=== PATIENT | female | born 1995 | race Caucasian/White ===

== ENCOUNTER 2022-04-24 12:45 | Inpatient (IN) | payer MEDICAID ==
[~2022-04-24] VITALS: Ht 165.1 cm; Wt 80.1 kg
[2022-04-24] VITALS (22 sets, daily range): BP systolic 73–135; BP diastolic 46–88
[~2022-04-24 12:45] MED LIST: ACHD5005 PO; AMOX500C2 PO; CYCL10TA9 PO; DEPO-PROVERA SQ; Depo Provera; LNS30CCR PO
--- NOTE | 2022-04-24 13:04 | History & Physical ---
History and Physical Date Seen by Provider: Apr 24, 2022 Time Seen by Provider: 13:01 This patient is a 27-year-old 2 para 1 female who is currently at 35-4/7 weeks gestation. She was seen in my clinic for return OB today was found mariela every 2 minutes and was dilated 5 cm within an hour she had changes 6 cm. She was sent to labor and delivery for labor management. Patient denies rupture membranes or bleeding. Her GBS culture was negative. Patient has had no problems with this . Allergies are to aspirin Medications are vitamins Medical social and surgical histories are per the antepartum record HEENT exam is normal Neck is supple no lymphadenopathy no thyromegaly Abdomen extremities show no clubbing or cyanosis. There is no Homans' sign. Pelvic exam was sick centimeters 80 to 90% effaced -1 station in clinic. Recheck is pending Assessment and plan 5-4/7 weeks gestation with labor. It appears is likely eminent management and delivery management 35-4/7 weeks gestation with labor Allergies and Home Medications Allergies Coded Allergies: aspirin (Unverified Allergy, Unknown, 01/14/16) Patient Home Medication List Home Medication List Reviewed: No Amoxicillin (Amoxicillin) 500 Mg Capsule, 1 EACH PO BID Prescribed by: DAFNE KASPER on 06/28/13 1607 Cyclobenzaprine Hcl (Cyclobenzaprine Hcl) 10 Mg Tablet, 1 EACH PO Q8HR PRN, (Reported) Entered as Reported by: WILLOW FERNANDEZ on 06/28/13 1554 Hydrocodone Bit/Acetaminophen (Lortab 5 Mg Tablet) 1 Each Tablet, 1 EACH PO Q4H, (Reported) Entered as Reported by: WILLOW FERNANDEZ on 06/28/13 1554 Oxycodone Hcl (Oxyir Tablet) 5 Mg Tab, 5 MG PO Q6H PRN for pain Prescribed by: MILLER MARADIAGA on 04/24/22 1635 [Depo Provera] , (Reported) Entered as Reported by: WILLOW FERNANDEZ on 06/28/13 1554 MILLER BERG MD Apr 24, 2022 13:04
[2022-04-24] MEDS: D5 LR IV SOLUTION 1,000 ML IV SCH ×2 (13:36→20:13)
[2022-04-24 13:37] LABS: BASOPHILS % (AUTO) 0 % (0-10); EOSINOPHILS # (AUTO) 0.1 10^3/uL (0.0-0.3); EOSINOPHILS % (AUTO) 1 % (0-10); HEMATOCRIT 39 % (35-52); HEMOGLOBIN 13.1 g/dL (11.5-16.0); LYMPHOCYTES # (AUTO) 2.3 10^3/uL (1.0-4.0); LYMPHOCYTES % (AUTO) 18 % (12-44); MEAN CORPUSCULAR HEMOGLOBIN 30 pg (25-34); MEAN CORPUSCULAR HGB CONC 34 g/dL (32-36); MEAN CORPUSCULAR VOLUME 87 fL (80-99); MEAN PLATELET VOLUME 9.7 fL (9.0-12.2); MONOCYTES # (AUTO) 0.6 10^3/uL (0.0-1.0); MONOCYTES % (AUTO) 5 % (0-12); NEUTROPHILS # (AUTO) 9.3 10^3/uL (1.8-7.8); NEUTROPHILS % (AUTO) 75 % (42-75); PLATELET COUNT 215 10^3/uL (130-400); WHITE BLOOD COUNT 12.4 10^3/uL (4.3-11.0)
[2022-04-24] MEDS ORDERED: LIDOCAINE/EPI 2% 1:200,00 (XYLOCAINE) 10 ML VIAL INJ ONE (14:00)
[2022-04-24] MEDS ORDERED: OXYTOCIN PRE-MIX DRIP 500 ML IV ONE (14:34)
[2022-04-24] MEDS ORDERED: OXC5T PO (16:35)
--- NOTE | 2022-04-24 16:36 | Discharge Inst-Surgical ---
Discharge Inst-Surgical Depart Medication/Instructions New, Converted or Re-Newed RX: Other Consults/Follow Up Patient Instructions: As directed Orders & Referrals Follow Up Appt: Call to make follow up appt. for patient in 4 weeks. Activity Per routine post vaginal delivery instructions. Diet as tolerated Patient may shower or tub bathe as desired. Activity Activity as Tolerated: No Diet Discharge Diet: No Restrictions MILLER BERG MD Apr 24, 2022 16:36
[2022-04-24] MEDS ORDERED: METHYLERGONOVINE 0.2 MG/ML (METHERGINE) AMP ONE ×2 (17:38→18:15)
[2022-04-24] MEDS ORDERED: ONDANSETRON 4 MG/2 ML (SDV) Z0FRAN ONE ×3 (17:50→18:46)
[2022-04-24] MEDS ORDERED: fentaNYL INJ 100 MCG/2 ML AMP ONE (17:53)
[2022-04-24] MEDS ORDERED: LIDOCAINE PF 2% 5 ML (XYLOCAINE) VIAL ONE (17:53)
[2022-04-24] MEDS ORDERED: proPOfol 200 MG/20 ML (DIPRIVAN) VIAL IV ONE (17:53)
[2022-04-24] MEDS ORDERED: MIDAZOLAM 2 MG/2 ML (VERSED) VIAL ONE (17:53)
[2022-04-24] MEDS ORDERED: SUCCINYLCHOLINE INJ 100 MG/5 ML SYR/VIAL ONE (17:53)
[2022-04-24] MEDS: METHYLERGONOVINE 0.2 MG/ML (METHERGINE) AMP IM ONE (18:15)
[2022-04-24] MEDS ORDERED: SEVOFLURANE (ULTANE) 15 ML INHAL SOLN ONE (18:25)
[2022-04-24] MEDS ORDERED: morphine INJ 10 MG/ML 1ML (SYR OR VIAL) ONE (18:43)
[2022-04-24] MEDS ORDERED: morphine INJ 10 MG/ML 1ML (SYR OR VIAL) IVP ONE (18:45)
[2022-04-24] MEDS ORDERED: ACETAMINOPHEN 500 MG TAB (TYLENOL) PO PRN (18:45)
[2022-04-24] MEDS ORDERED: METHYLERGONOVINE 0.2 MG/ML (METHERGINE) AMP IM ONE (18:45)
[2022-04-24] MEDS ORDERED: OXYTOCIN PRE-MIX DRIP 500 ML IV SCH (18:45)
[2022-04-24] MEDS ORDERED: TETANUS,DIPTH,PERTUSS P/F (BOOSTRIX) 0.5 ML VIAL IM ONE (18:45)
[2022-04-24] MEDS ORDERED: BENZOCAINE/MENTHOL (DERMOPLAST) 56 ML CAN TP PRN (18:45)
[2022-04-24] MEDS ORDERED: HYDROmorphone 2 MG/ML VIAL (DILAUDID) IV ONE (18:45)
[2022-04-24] MEDS ORDERED: ONDANSETRON 4 MG/2 ML (SDV) Z0FRAN IVP PRN (18:45)
[2022-04-24] MEDS ORDERED: MEPERIDINE (DEMEROL) INJ 50 MG/ML IVP ONE (18:45)
[2022-04-24] MEDS ORDERED: PROMETHAZINE INJ 25 MG/ML (PHENERGAN) AMP ONE (18:50)
--- NOTE | 2022-04-24 18:52 | Anesthesia-General Post-Op ---
General Patient Condition Mental Status/LOC: Same as Preop Cardiovascular: Satisfactory Nausea/Vomiting: Absent Respiratory: Satisfactory Pain: Controlled Complications: Absent Post Op Complications Complications None Follow Up Care/Instructions Patient Instructions None needed. Anesthesia/Patient Condition Patient Condition Patient is doing well, no complaints, stable vital signs, no apparent adverse anesthesia problems. No complications reported per nursing. RADHA TORRES CRNA Apr 24, 2022 18:52
[2022-04-24] MEDS ORDERED: LACTATED RINGERS 1,000 ML IV SCH (19:15)
[2022-04-24] MEDS ORDERED: D5 LR IV SOLUTION 1,000 ML IV SCH (19:50)
[2022-04-24 20:42] LABS: BASOPHILS # (AUTO) 0.1 10^3/uL (0.0-0.1); BASOPHILS % (AUTO) 0 % (0-10); EOSINOPHILS % (AUTO) 0 % (0-10); HEMATOCRIT 29 % (35-52); HEMOGLOBIN 9.8 g/dL (11.5-16.0); LYMPHOCYTES # (AUTO) 1.2 10^3/uL (1.0-4.0); LYMPHOCYTES % (AUTO) 5 % (12-44); MEAN CORPUSCULAR HEMOGLOBIN 29 pg (25-34); MEAN CORPUSCULAR HGB CONC 33 g/dL (32-36); MEAN CORPUSCULAR VOLUME 88 fL (80-99); MEAN PLATELET VOLUME 9.5 fL (9.0-12.2); MONOCYTES # (AUTO) 0.5 10^3/uL (0.0-1.0); MONOCYTES % (AUTO) 2 % (0-12); NEUTROPHILS # (AUTO) 22.1 10^3/uL (1.8-7.8); NEUTROPHILS % (AUTO) 92 % (42-75); PLATELET COUNT 215 10^3/uL (130-400)
[2022-04-24] MEDS: DOCUSATE SODIUM 100 MG (COLACE) CAP PO SCH (21:00)
[2022-04-24 21:13] LABS: LYMPHOCYTES % (MANUAL) 5 %; MONOCYTES % (MANUAL) 1 %; NEUTROPHILS % (MANUAL) 94 %
[2022-04-24 21:14] LABS: MICROCYTOSIS SLIGHT
[2022-04-25 01:35] VITALS: BP 101/67
--- NOTE | 2022-04-25 02:11 | OPERATIVE REPORT ---
DATE OF SERVICE: 04/24/2022 DELIVERY NOTE The patient delivered by spontaneous vaginal delivery a viable female with Apgars of 8 and 8 at 1 and 5 minutes respectively, weight of 5 pounds 11 ounces, time of 1730 and a cord blood pH that is still pending. The was delivered over an intact perineum under no analgesia. The infant was bulb suctioned on completion of delivery. The umbilical cord when relatively pulseless was doubly clamped. The father cut the cord, the baby was passed to the warmer to the care of Dr. Joe, the oxygen system tester in attendance for the delivery. The placenta delivered fairly promptly Enma. It was normal with a 3-vessel cord. The cervix, vagina, rectum, and perineum were examined and found intact. There was fairly normal bleeding after delivery of the placenta initially. After several minutes and after a very vigorous fundal massage by the labor and delivery nurse, the patient's bleeding seemed to be increasing. Having assured there were no lacerations in the cervix or the vagina promptly after delivery of the . Because of the increased bleeding, I returned to the care of the patient and did a bimanual exam to assess the status of the uterus. It was immediately apparent that the uterus had spontaneously inverted. The entire uterus was inverted and filling the vagina. The patient could barely tolerate the exam to determine the status of the uterus and clearly could not tolerate replacement of the uterus. So, at this point, anesthesia and surgery were called emergently for management of the inverted uterus. See operative note for care of the patient with inverted uterus for further details on that. Sponge and needle counts had been determined correct immediately after delivery of the placenta and before the bleeding increased. Estimated blood loss was in the neighborhood of 500 cc in detail the uterine inversion occurred, The patient had tolerated the delivery well. The baby had been taken to the full-term nursery under the care of Dr. Joe. See additional operative note for management of the patient in regard to the anteverted uterus after the delivery Job ID: [id number] DocumentID: [id number] Dictated Date: 04/24/2022 20:17:36 Sales Administration Specialist Date: 04/25/2022 02:10:36 Dictated By: MILLER BERG MD MTDD
--- NOTE | 2022-04-25 02:19 | OPERATIVE REPORT ---
DATE OF SERVICE: 04/24/2022 PREOPERATIVE DIAGNOSIS: Inverted uterus with hemorrhage after spontaneous vaginal delivery. POSTOPERATIVE DIAGNOSIS: Inverted uterus with hemorrhage after spontaneous vaginal delivery. OPERATIVE PROCEDURE: Replacement and lutheran of normal anatomy of an inverted uterus and control of hemorrhage under general anesthesia. DESCRIPTION OF PROCEDURE: With the patient in the supine position under satisfactory general anesthesia, she was repositioned in dorsal lithotomy position in the Salvador stirrups. A large quantity of blood in excess of 1 liter was removed from the vagina manually. The patient was then prepped and draped for vaginal surgery. Bimanual exam was performed. The uterus was completely inverted inside the vagina. Vagina the uterus was fairly vigorously mariela which was maintaining the condition and position of the uterus/conversion, With general anesthesia adequate gradually the tetanic contraction of the uterus slowly resolves allowing the fundus of the uterus to be gradually manipulated through the cervix reorienting the uterus into the pelvis in a normal anatomic position. Blood loss was brisk but tolerable during this portion of the procedure. With manual pressure from below transvaginally as well as manual pressure and manipulation of the uterus and uterine fundus transabdominally, the uterus was eventually restored to the normal anatomic position. The patient's blood loss gradually and progressively decreased as the inversion was corrected. With the uterus restored to normal anatomic position, the patient was given a dose of Methergine IM to maintain uterine tone and prevent reconversion of the uterus. At this point, blood loss was stemmed fairly completely. The patient had total blood loss at this point estimated for the delivery atabout 500cc and for the operative procedure at hand an addtitional 1000 and 1500 mL of blood. The uterus remained in the normal anatomic position and contracted nicely with minimal bleeding. After about 5 to 10 minutes with no evidence of furtehr or recurrent utreine compromise the patient was uneventfully awakened from her general anesthesia and transferred to recovery room in stable condition. Total blood loss for the procedure in the operating room was in the range of 1500 mL. The patient had lost in the range of 500 mL for the delivery itself. Plan included obtaining a CBC in the recovery room and recheck tomorrow morning providing patient has no significant increase in blood loss from this time on. Sponge and needle counts were correct on completion of the procedure. The patient again was transferred to recovery room in stable with close attention to bleeding and to the status of the uterus. Job ID: [id number] DocumentID: [id number] Dictated Date: 04/24/2022 20:21:03 Bell Valet Date: 04/25/2022 02:18:35 Dictated By: MILLER BERG MD MTDD
[2022-04-25 04:56] VITALS: BP 88/57
[2022-04-25 05:14] LABS: BASOPHILS % (AUTO) 0 % (0-10); EOSINOPHILS % (AUTO) 0 % (0-10); HEMATOCRIT 24 % (35-52); HEMOGLOBIN 8.2 g/dL (11.5-16.0); LYMPHOCYTES % (AUTO) 11 % (12-44); MEAN CORPUSCULAR HEMOGLOBIN 30 pg (25-34); MEAN CORPUSCULAR HGB CONC 34 g/dL (32-36); MEAN CORPUSCULAR VOLUME 88 fL (80-99); MEAN PLATELET VOLUME 9.7 fL (9.0-12.2); MONOCYTES % (AUTO) 5 % (0-12); NEUTROPHILS # (AUTO) 15.8 10^3/uL (1.8-7.8); NEUTROPHILS % (AUTO) 83 % (42-75); PLATELET COUNT 226 10^3/uL (130-400)
[2022-04-25 05:32] LABS: NEUTROPHILS % (MANUAL) 88 %
[2022-04-25 05:33] LABS: ANISOCYTOSIS SLIGHT; LYMPHOCYTES % (MANUAL) 8 %; MONOCYTES % (MANUAL) 4 %
--- NOTE | 2022-04-25 07:26 | Progress Note ---
Standard Progress Note Progress Notes/Assess & Plan Date Seen by a Provider: Apr 25, 2022 Time Seen by a Provider: 07:23 Progress/Assessment & Plan This patient is without complaint. Ambulating, voiding, tolerating oral intake well has good pain control. Her delivery was complicated by spontaneous uterine inversion . She did go to the operating room to have that replaced but has recovered now uneventfully. Her hemoglobin this morning is slightly over 8 and we will just do observation in regards to her blood loss anemia Laboratory Tests Test 04/24/22 13:00 04/24/22 20:35 04/25/22 05:00 Range/Units White Blood Count 12.4 H 24.0 H 19.0 H 4.3-11.0 10^3/uL Red Blood Count 4.44 3.33 L 2.78 L 3.80-5.11 10^6/uL Hemoglobin 13.1 9.8 #L 8.2 L 11.5-16.0 g/dL Hematocrit 39 29 L 24 L 35-52 % Mean Corpuscular Volume 87 88 88 80-99 fL Mean Corpuscular Hemoglobin 30 29 30 25-34 pg Mean Corpuscular Hemoglobin Concent 34 33 34 32-36 g/dL Red Cell Distribution Width 12.9 12.9 12.8 10.0-14.5 % Platelet Count 215 215 226 130-400 10^3/uL Mean Platelet Volume 9.7 9.5 9.7 9.0-12.2 fL Immature Granulocyte % (Auto) 0 1 1 % Neutrophils (%) (Auto) 75 92 H 83 H 42-75 % Lymphocytes (%) (Auto) 18 5 L 11 L 12-44 % Monocytes (%) (Auto) 5 2 5 0-12 % Eosinophils (%) (Auto) 1 0 0 0-10 % Basophils (%) (Auto) 0 0 0 0-10 % Neutrophils # (Auto) 9.3 H 22.1 H 15.8 H 1.8-7.8 10^3/uL Lymphocytes # (Auto) 2.3 1.2 2.0 1.0-4.0 10^3/uL Monocytes # (Auto) 0.6 0.5 1.0 0.0-1.0 10^3/uL Eosinophils # (Auto) 0.1 0.0 0.0 0.0-0.3 10^3/uL Basophils # (Auto) 0.0 0.1 0.0 0.0-0.1 10^3/uL Immature Granulocyte # (Auto) 0.1 0.2 H 0.2 H 0.0-0.1 10^3/uL Neutrophils % (Manual) 94 88 % Lymphocytes % (Manual) 5 8 % Monocytes % (Manual) 1 4 % Microcytosis SLIGHT Anisocytosis SLIGHT Vital Signs Date Time Temp Pulse Resp B/P (MAP) Pulse Ox O2 Delivery O2 Flow Rate FiO2 04/25/22 04:56 36.7 78 18 88/57 (67) Room Air 04/25/22 01:35 36.6 89 18 101/67 (78) 99 Room Air 04/24/22 20:43 36.6 113 18 109/67 (81) 97 Room Air 04/24/22 20:26 36.6 108 18 102/63 (76) 96 Room Air 04/24/22 20:11 98 18 100/62 (75) 96 Room Air 04/24/22 19:56 36.5 111 18 104/59 (74) 97 Room Air 04/24/22 19:41 104 18 116/57 (76) 98 Room Air 04/24/22 19:39 36.4 109 18 109/58 (75) 98 Room Air 04/24/22 19:30 Room Air 04/24/22 19:25 36.9 16 103/69 (80) 96 Room Air 04/24/22 19:20 16 95/67 (76) 96 Room Air 04/24/22 19:15 Room Air 04/24/22 19:10 20 105/65 (78) 100 OxyMask 2.00 04/24/22 19:00 24 78/46 (57) 99 OxyMask 2.00 04/24/22 19:00 OxyMask 4.00 04/24/22 18:50 28 109/73 (85) 99 OxyMask 4.00 04/24/22 18:45 OxyMask 8 04/24/22 18:40 24 73/58 (63) 100 OxyMask 8 04/24/22 18:33 OxyMask 8 04/24/22 18:33 36.4 22 96/60 (72) 99 OxyMask 8 04/24/22 17:25 100 18 135/88 (104) Room Air 10/20/22 16:55 36.5 82 18 115/55 (75) Room Air 04/24/22 16:25 96 18 124/75 (91) Room Air 04/24/22 15:55 36.5 89 18 122/78 (93) Room Air 04/24/22 15:25 84 18 117/80 (92) Room Air 04/24/22 14:55 36.4 86 18 114/72 (86) Room Air 04/24/22 14:25 96 18 127/78 (94) Room Air 04/24/22 13:55 85 18 121/73 (89) Room Air 04/24/22 12:55 36.5 89 18 98 Room Air 04/24/22 12:55 36.5 89 18 117/68 (84) 98 Room Air I & O 04/25/22 07:00 Intake Total 1600 ml Output Total 1000 ml Balance 600 ml Patient is afebrile vital signs are stable. The abdomen is benign. The fundus is firm and well below the umbilicus. Extremities show no clubbing or cyanosis. No Homans. Pelvic exam is deferred Assessment and plan day #1 status post spontaneous vaginal livery doing well. Patient also has postoperative day #1 status post trip to the operating room for replacement of uterine inversion. She is doing well. She probably lost in the range of 1-1/2 to 2 L of blood with the delivery and the complication. Her hemoglobin today is over 8 and she feelsStable and normal. She denies headache denies shortness of breath. Her pulse is in the normal range. We discussed observation with iron supplementation which she was started on. This patient's baby is in the NICU and [place]. Patient would like to be discharged and she can now follow her baby and we will allow that today. Final Diagnosis 35-week spontaneous vaginal delivery MILLER BERG MD Apr 25, 2022 07:26
[2022-04-25 07:45] VITALS: BP 104/65
[2022-04-25] MEDS: DOCUSATE SODIUM 100 MG (COLACE) CAP PO SCH (09:00)
[2022-04-25 10:10] VITALS: BP 104/65
--- NOTE | 2022-04-25 14:43 | Anesthesia-General Post-Op ---
General Patient Condition Mental Status/LOC: Same as Preop Cardiovascular: Satisfactory Nausea/Vomiting: Absent Respiratory: Satisfactory Pain: Controlled Complications: Absent Post Op Complications Complications None Follow Up Care/Instructions Patient Instructions None needed. Anesthesia/Patient Condition Patient Condition Patient is doing well, no complaints, stable vital signs, no apparent adverse anesthesia problems. No complications reported per nursing. HAROLDO WILCOX CRNA Apr 25, 2022 14:43
== END 2022-04-25 10:10 | disposition home or self-care (01) | DRG 768 ==
LOC: LDRP 12:45
PROVIDERS: ADMIT Obstetrics & Gynecology; ATTEND Obstetrics & Gynecology
PROC: 0US97ZZ Reposition Uterus, Via Natural or Artificial Opening (ICD-10-PCS; 2022-04-24)
PROC: 0W3R7ZZ Control Bleeding in Genitourinary Tract, Via Natural or Artificial Opening (ICD-10-PCS; 2022-04-24)
PROC: 10E0XZZ Delivery of Products of Conception, External Approach (ICD-10-PCS; principal; 2022-04-24 18:03)
DX: O60.14X0 Preterm labor third trimester with preterm delivery third trimester, not applicable or unspecified (principal); Z37.0 Single live birth; O71.2 Postpartum inversion of uterus; O72.1 Other immediate postpartum hemorrhage; Z3A.35 35 weeks gestation of pregnancy
CPT/HCPCS: 36415; 85007; 85025; 85027; 86850; 86900; 86901; 86920; 99212

== ENCOUNTER 2022-04-30 15:52 | Emergency (ER) | payer MEDICAID ==
[~2022-04-30] VITALS: Ht 167.7 cm; Wt 79.8 kg
[~2022-04-30 15:52] MED LIST changes: +OXC5T PO
[2022-04-30 16:36] LABS: BASOPHILS % (AUTO) 0 % (0-10); EOSINOPHILS # (AUTO) 0.2 10^3/uL (0.0-0.3); EOSINOPHILS % (AUTO) 2 % (0-10); HEMATOCRIT 24 % (35-52); HEMOGLOBIN 7.6 g/dL (11.5-16.0); LYMPHOCYTES # (AUTO) 2.8 10^3/uL (1.0-4.0); LYMPHOCYTES % (AUTO) 28 % (12-44); MEAN CORPUSCULAR HEMOGLOBIN 29 pg (25-34); MEAN CORPUSCULAR HGB CONC 32 g/dL (32-36); MEAN CORPUSCULAR VOLUME 92 fL (80-99); MEAN PLATELET VOLUME 8.7 fL (9.0-12.2); MONOCYTES # (AUTO) 0.6 10^3/uL (0.0-1.0); MONOCYTES % (AUTO) 6 % (0-12); NEUTROPHILS # (AUTO) 6.6 10^3/uL (1.8-7.8); NEUTROPHILS % (AUTO) 65 % (42-75); PLATELET COUNT 395 10^3/uL (130-400); WHITE BLOOD COUNT 10.2 10^3/uL (4.3-11.0)
[2022-04-30 16:49] LABS: ALBUMIN 3.3 GM/DL (3.2-4.5); POTASSIUM 3.9 MMOL/L (3.6-5.0)
[2022-04-30 16:50] LABS: CALCIUM 8.5 MG/DL (8.5-10.1)
--- NOTE | 2022-04-30 16:51 | ED Lower Extremity ---
General Chief Complaint: Lower Extremity Stated Complaint: SWOLLEN LEG Nursing Triage Note: PT AMB TO [facility] 6 WITH COMPLAINT OF RIGHT ANKLE SWELLING. STATES ANKLE HAS BEEN SWELLING SINCE SHE DELIVERED ON THURSDAY. STATES SHE CAME HOME WITH BILATERAL ANKLE SWELLING POST DELIVERY, BUT RIGHT ANKLE CONTINUES TO SWELL. DENIES INJURY. Source: patient Exam Limitations: no limitations History of Present Illness Date Seen by Provider: Apr 30, 2022 Time Seen by Provider: 16:51 Allergies and Home Medications Allergies Coded Allergies: aspirin (Unverified Allergy, Unknown, 01/14/16) Patient Home Medication List Oxycodone Hcl (Oxyir Tablet) 5 Mg Tab, 5 MG PO Q6H PRN for pain Prescribed by: MILLER MARADIAGA on 04/24/22 1635 Discontinued Medications Amoxicillin (Amoxicillin) 500 Mg Capsule, 1 EACH PO BID Discontinued Reason: No Longer Taking Prescribed by: DAFNE KASPER on 06/28/13 1607 Cyclobenzaprine Hcl (Cyclobenzaprine Hcl) 10 Mg Tablet, 1 EACH PO Q8HR PRN, (Reported) Discontinued Reason: No Longer Taking Entered as Reported by: WILLOW FERNANDEZ on 06/28/13 1554 Hydrocodone Bit/Acetaminophen (Lortab 5 Mg Tablet) 1 Each Tablet, 1 EACH PO Q4H, (Reported) Discontinued Reason: No Longer Taking Entered as Reported by: WILLOW FERNANDEZ on 06/28/13 1554 [Depo Provera] , (Reported) Discontinued Reason: No Longer Taking Entered as Reported by: WILLOW FERNANDEZ on 06/28/13 1554 Past Mqaplcn-Pmrqsp-Bqtomn Hx Patient Social History Tobacco Use?: No Use of E-Cig and/or Vaping dev: No Substance use?: No Alcohol Use?: No Pt feels they are or have been: No Past Medical History Currently Using CPAP: No Currently Using BIPAP: No Reproductive Disorders: No Sexually Transmitted Disease: No Physical Exam Vital Signs Vital Signs - First Documented 04/30/22 15:57 Pulse 81 Resp 16 B/P (MAP) 139/80 (99) Pulse Ox 100 O2 Delivery Room Air Capillary Refill : Less Than 3 Seconds Height, Weight, BMI Height: '" Weight: 115lbs. oz. 52.559007eq; 28.00 BMI Method:Stated Progress/Results/Core Measures Results/Orders Lab Results Laboratory Tests Test 04/30/22 16:28 04/30/22 16:54 Range/Units White Blood Count 10.2 4.3-11.0 10^3/uL Red Blood Count 2.62 L 3.80-5.11 10^6/uL Hemoglobin 7.6 L 11.5-16.0 g/dL Hematocrit 24 L 35-52 % Mean Corpuscular Volume 92 80-99 fL Mean Corpuscular Hemoglobin 29 25-34 pg Mean Corpuscular Hemoglobin Concent 32 32-36 g/dL Red Cell Distribution Width 13.2 10.0-14.5 % Platelet Count 395 130-400 10^3/uL Mean Platelet Volume 8.7 L 9.0-12.2 fL Immature Granulocyte % (Auto) 0 % Neutrophils (%) (Auto) 65 42-75 % Lymphocytes (%) (Auto) 28 12-44 % Monocytes (%) (Auto) 6 0-12 % Eosinophils (%) (Auto) 2 0-10 % Basophils (%) (Auto) 0 0-10 % Neutrophils # (Auto) 6.6 1.8-7.8 10^3/uL Lymphocytes # (Auto) 2.8 1.0-4.0 10^3/uL Monocytes # (Auto) 0.6 0.0-1.0 10^3/uL Eosinophils # (Auto) 0.2 0.0-0.3 10^3/uL Basophils # (Auto) 0.0 0.0-0.1 10^3/uL Immature Granulocyte # (Auto) 0.0 0.0-0.1 10^3/uL Sodium Level 141 135-145 MMOL/L Potassium Level 3.9 3.6-5.0 MMOL/L Chloride Level 112 H 98-107 MMOL/L Carbon Dioxide Level 20 L 21-32 MMOL/L Anion Gap 9 5-14 MMOL/L Blood Urea Nitrogen 5 L 7-18 MG/DL Creatinine 0.74 0.60-1.30 MG/DL Estimat Glomerular Filtration Rate 114 BUN/Creatinine Ratio 7 Glucose Level 73 70-105 MG/DL Calcium Level 8.5 8.5-10.1 MG/DL Corrected Calcium 9.1 8.5-10.1 MG/DL Total Bilirubin 0.2 0.1-1.0 MG/DL Aspartate Amino Transf (AST/SGOT) 17 5-34 U/L Alanine Aminotransferase (ALT/SGPT) 16 0-55 U/L Alkaline Phosphatase 116 40-136 U/L C-Reactive Protein High Sensitivity 2.98 H 0.00-0.50 MG/DL B-Type Natriuretic Peptide 78.1 <100.0 PG/ML Total Protein 6.5 6.4-8.2 GM/DL Albumin 3.3 3.2-4.5 GM/DL Urine Color YELLOW Urine Clarity CLEAR Urine pH 7.0 5-9 Urine Specific [place] <=1.005 1.016-1.022 Urine Protein NEGATIVE NEGATIVE Urine Glucose (UA) NEGATIVE NEGATIVE Urine Ketones NEGATIVE NEGATIVE Urine Nitrite NEGATIVE NEGATIVE Urine Bilirubin NEGATIVE NEGATIVE Urine Urobilinogen 0.2 < = 1.0 MG/DL Urine Leukocyte Esterase 2+ H NEGATIVE Urine RBC (Auto) 2+ H NEGATIVE Urine RBC 0-2 /HPF Urine WBC 5-10 H /HPF Urine Squamous Epithelial Cells 2-5 /HPF Urine Crystals NONE /LPF Urine Bacteria FEW H /HPF Urine Casts NONE /LPF Urine Mucus NEGATIVE /LPF Urine Culture Indicated YES My Orders Orders - CLOTILDE BLACK APRN Us Venous Lower Ext Rt (04/30/22 16:25) Ua Culture If Indicated (04/30/22 16:26) Hs C Reactive Protein (04/30/22 16:26) Cbc With Automated Diff (04/30/22 16:26) Comprehensive Metabolic Panel (04/30/22 16:26) Bnp Thierry (04/30/22 16:26) Chest 1 View, Ap/Pa Only (04/30/22 16:26) Ed Iv/Invasive Line Start (04/30/22 16:49) Urine Culture (04/30/22 16:54) Vital Signs/I&O 04/30/22 15:57 Pulse 81 Resp 16 B/P (MAP) 139/80 (99) Pulse Ox 100 O2 Delivery Room Air Blood Pressure Mean: 99 Departure Impression Primary Impression: Peripheral edema Additional Impression: UTI (urinary tract infection) Disposition: 01 HOME, SELF-CARE Condition: Stable Departure-Patient Inst. Decision time for Depature: 18:25 Referrals: [facility] (PCP/Family) Primary Care Physician Patient Instructions: Swelling Add. Discharge Instructions: Plan: 1. Follow-up with Dr. BERG as previously scheduled. 2. Limit your sodium intake as this will help reduce the fluid that you retain. 3. Return to the ER for any new, concerning, worsening symptoms All discharge instructions reviewed with patient and/or family. Voiced understanding. Scripts Cephalexin (Cephalexin) 500 Mg Tablet 500 MG PO BID for 7 Days, #14 TAB 0 Refills Prov: CLOTILDE BLACK APRN 04/30/22 CLOTILDE BLACK APRN Apr 30, 2022 16:51
[2022-04-30 16:52] LABS: TOTAL PROTEIN 6.5 GM/DL (6.4-8.2)
[2022-04-30 16:53] LABS: BILIRUBIN,TOTAL 0.2 MG/DL (0.1-1.0)
[2022-04-30 16:55] LABS: CREATININE SERUM 0.74 MG/DL (0.60-1.30)
--- NOTE | 2022-04-30 16:56 | Diagnostic Imaging Report ---
INDICATION: Right leg pain. Right leg venous Doppler study was performed in the routine fashion with color flow Doppler and waveform analysis. FINDINGS: The right common femoral vein, superficial femoral vein, popliteal vein and visualized portion of the tibial veins show normal compressibility and venous flow patterns. There is normal augmentation. IMPRESSION: No evidence of deep vein thrombosis of the major veins of the right leg. Dictated by: Dictated on workstation # [id number]
[2022-04-30 17:04] LABS: BILIRUBIN,URINE NEGATIVE (NEGATIVE); CLARITY,URINE CLEAR; COLOR,URINE YELLOW; GLUCOSE, URINE (UA) NEGATIVE (NEGATIVE); KETONES,URINE NEGATIVE (NEGATIVE); LEUKOCYTE ESTERASE ,URINE 2+ (NEGATIVE); NITRITE,URINE NEGATIVE (NEGATIVE); PROTEIN,URINE NEGATIVE (NEGATIVE)
--- NOTE | 2022-04-30 17:11 | Diagnostic Imaging Report ---
INDICATION: Diminished breath sounds and peripheral edema Single AP view of the chest is obtained. There is no previous study for comparison. Heart size is within normal limits. Pulmonary vascular is at the upper limits of normal. No pneumothorax, consolidation or pleural fluid is seen. IMPRESSION: Mild pulmonary venous congestion versus hypervolemia without other evidence of acute abnormality in the chest. Dictated by: Dictated on workstation # [id number]
[2022-04-30 17:20] LABS: BACTERIA,URINE FEW /HPF; RBC,URINE 0-2 /HPF
[2022-04-30] MEDS ORDERED: CEPH500T PO (18:29)
[2022-04-30] MEDS ORDERED: CEPHALEXIN 250 MG (KEFLEX) CAP PO ONE (18:30)
[2022-04-30 18:48] VITALS: BP 121/82
== END 2022-04-30 18:48 | disposition home or self-care (01) ==
LOC: EDUNIT# 15:52 → ER 15:54
DX: N39.0 Urinary tract infection, site not specified (principal); R60.0 Localized edema; Z28.310 Unvaccinated for COVID-19
CPT/HCPCS: 36415; 71045; 80053; 81000; 83880; 84703; 85025; 86141; 87088